=== PATIENT | female | born 1990 | race Caucasian/White ===

== ENCOUNTER 2016-06-24 13:28 | Emergency (ER) | payer OTHER ==
[~2016-06-24] VITALS: Ht 144.8 cm; Wt 45.0 kg
[2016-06-24 13:30] VITALS: BP 114/63; PULSE 74; RESP 20; TEMP 97.8; O2SAT 95
[2016-06-24] MEDS ORDERED: METH10SO PO (14:25)
--- NOTE | 2016-06-24 14:41 | PD ---
HPI Chief Complaint: GI Complaint Time Seen by Provider: 14:41 Travel History International Travel<30 days: No Contact w/Intl Traveler<30days: No Traveled to known affect area: No History of Present Illness HPI 25 year-old female presents to the emergency department for medical clearance. Patient was seen and evaluated the methadone clinic. She is trying to get off of IV heroin. While she was there, she states the care provider told her she had a "very enlarged liver" and advised she come to the emergency department for further evaluation. Patient states that she has been exposed to hepatitis C in the past but has never been treated for it. She also has been told that she has had HPV and would like to know if she has a type the causes cervical cancer. Patient denies any abdominal pain. No vaginal discharge or bleeding. No nausea or vomiting. Patient states that in the past she had had some abdominal pain but she has not been having any abdominal pain recently. She has no other symptoms reported this time. PFSH Past Medical History Medical History: Denies Significant Hx Diminished Hearing: No Genitourinary: Yes (UTI) Hepatitis: Yes (HEP C ) Reproductive: Yes (HPD) Tetanus Vaccination: > 5 Years Influenza Vaccination: No ?: Not LMP: few months Past Surgical History Surgical History: No Previous Surgery Social History Alcohol Use: Yes (OCC) Tobacco Use: Yes (OCC) Substance Use: Yes (opiadates states quit since couple weeks) Allergies-Medications (Allergen,Severity, Reaction): Coded Allergies: No Known Allergies (Unverified , 06/24/16) Reported Meds & Prescriptions Reported Meds & Active Scripts Active Reported Methadone Liq (Methadone HCl) 2 Mg/Ml Liqd 85 Mg PO DAILY Review of Systems Except as stated in HPI: all other systems reviewed are Neg Physical Exam Narrative GENERAL: Well-nourished female patient, in no acute distress SKIN: Focused skin assessment warm/dry. HEAD: Atraumatic. Normocephalic. EYES: Pupils equal and round. No scleral icterus. No injection or drainage. ENT: No nasal bleeding or discharge. Mucous membranes pink and moist. NECK: Trachea midline. No JVD. CARDIOVASCULAR: Regular rate and rhythm. No murmur appreciated. RESPIRATORY: No accessory muscle use. Clear to auscultation. Breath sounds equal bilaterally. GASTROINTESTINAL: Abdomen soft, non-tender, nondistended. Hepatic margins are palpable. No tenderness elicited palpation of the abdomen. No rebound tenderness. No guarding. MUSCULOSKELETAL: No obvious deformities. No clubbing. No cyanosis. No edema. NEUROLOGICAL: Awake and alert. No obvious cranial nerve deficits. Motor grossly within normal limits. Normal speech. Data Data Last Documented VS Vital Signs Date Time Temp Pulse Resp B/P Pulse Ox O2 Delivery O2 Flow Rate FiO2 06/24/16 16:30 98.1 78 17 110/77 99 06/24/16 14:45 Room Air Orders Complete Blood Count With Diff (06/24/16 14:35) Comprehensive Metabolic Panel (06/24/16 14:35) Lipase (06/24/16 14:35) Prothrombin Time / Inr (Pt) (06/24/16 14:35) Act Partial Throm Time (Ptt) (06/24/16 14:35) Urinalysis - C+S If Indicated (06/24/16 14:35) Iv Access Insert/Monitor (06/24/16 14:35) Ecg Monitoring (06/24/16 14:35) Oximetry (06/24/16 14:35) Sodium Chloride 0.9% Flush (Ns Flush) (06/24/16 14:45) Ed Urine Pregnancytest Poc (06/24/16 14:35) Sodium Chlor 0.9% 1000 Ml Inj (Ns 1000 M (06/24/16 14:45) Labs Laboratory Tests Test 06/24/16 15:00 White Blood Count 10.3 TH/MM3 Red Blood Count 4.89 MIL/MM3 Hemoglobin 13.6 GM/DL Hematocrit 40.9 % Mean Corpuscular Volume 83.8 FL Mean Corpuscular Hemoglobin 27.9 PG Mean Corpuscular Hemoglobin 33.3 % Concent Red Cell Distribution Width 14.6 % Platelet Count 281 TH/MM3 Mean Platelet Volume 9.0 FL Neutrophils (%) (Auto) 44.3 % Lymphocytes (%) (Auto) 46.2 % Monocytes (%) (Auto) 5.7 % Eosinophils (%) (Auto) 3.3 % Basophils (%) (Auto) 0.5 % Neutrophils # (Auto) 4.5 TH/MM3 Lymphocytes # (Auto) 4.7 TH/MM3 Monocytes # (Auto) 0.6 TH/MM3 Eosinophils # (Auto) 0.3 TH/MM3 Basophils # (Auto) 0.1 TH/MM3 CBC Comment DIFF FINAL Differential Comment Prothrombin Time 10.9 SEC Prothromb Time International 1.0 RATIO Ratio Activated Partial 28.9 SEC Thromboplast Time Urine Color YELLOW Urine Turbidity CLEAR Urine pH 5.5 Urine Specific [place] 1.019 Urine Protein NEG mg/dL Urine Glucose (UA) NEG mg/dL Urine Ketones NEG mg/dL Urine Occult Blood NEG Urine Nitrite NEG Urine Bilirubin NEG Urine Urobilinogen LESS THAN 2.0 MG/DL Urine Leukocyte Esterase TRACE Urine RBC 1 /hpf Urine WBC 2 /hpf Urine Squamous Epithelial 2 /hpf Cells Urine Hyaline Casts 1 /lpf Urine Mucus FEW /lpf Microscopic Urinalysis Comment CULT NOT INDICATED Sodium Level 136 MEQ/L Potassium Level 6.1 MEQ/L Chloride Level 102 MEQ/L Carbon Dioxide Level 30.6 MEQ/L Anion Gap 3 MEQ/L Blood Urea Nitrogen 13 MG/DL Creatinine 0.73 MG/DL Estimat Glomerular Filtration 98 ML/MIN Rate Random Glucose 78 MG/DL Calcium Level 9.1 MG/DL Total Bilirubin 0.3 MG/DL Aspartate Amino Transf 54 U/L (AST/SGOT) Alanine Aminotransferase 34 U/L (ALT/SGPT) Alkaline Phosphatase 69 U/L Total Protein 8.3 GM/DL Albumin 3.2 GM/DL Lipase 195 U/L [facility] Medical Decision Making Medical Screen Exam Complete: Yes Emergency Medical Condition: Yes Medical Record Reviewed: Yes Differential Diagnosis Normal examination versus elevated liver enzymes versus hepatitis versus enlarged liver versus substance abuse Narrative Course 25 year-old female presents to emergency department for evaluation. Patient appears without distress. Abdominal exam is benign. CBC and CMP are without acute concern. Potassium is 6.1 however there is hemolysis noted. AST slightly elevated at 54. Otherwise without acute concern. I discussed the patient my attending physician Dr. Neal. Patient is medically cleared to return to [facility] to continue on with assistance getting off of opiates. I have encouraged outpatient follow-up in regards to her reporting she has HPV and past exposure of a hepatitis C. She agrees to return immediately with any acute worsening symptoms. Diagnosis Primary Impression: Hyperkalemia Additional Impressions: Normal physical exam Opiate dependence Qualified Code: F11.20 - Uncomplicated opioid dependence Referrals: Primary Care Physician Patient Instructions: General Instructions, Hyperkalemia (ED) Additional Instructions: Follow-up with a primary care provider Return immediately with any acute worsening of symptoms Med/Other Pt SpecificInfo: No Change to Meds Disposition: 01 DISCHARGE HOME Condition: Stable Ronda Pratt Jun 24, 2016 14:41
[2016-06-24 14:45] VITALS: PULSE 76; RESP 17; O2SAT 99
[2016-06-24] MEDS ORDERED: SODIUM CHLOR 0.9% 1000 ML INJ 1,000 ML IV ONE (14:45)
[2016-06-24] MEDS ORDERED: SODIUM CHLORIDE 0.9% FLUSH 10 ML FLUSH IV FLUSH PRN (14:45)
[2016-06-24 15:35] LABS: AUTOMATED NEUTROPHIL # 4.5 TH/MM3 (1.8-7.7); BASOPHIL # 0.1 TH/MM3 (0-0.2); BASOPHIL % 0.5 % (0.0-2.0); EOSINOPHIL # 0.3 TH/MM3 (0-0.4); EOSINOPHIL % 3.3 % (0.0-4.0); HEMATOCRIT 40.9 % (35.0-46.0); HEMO FLAGS DIFF FINAL; LYMPH % 46.2 % (9.0-44.0); LYMPHOCYTE # 4.7 TH/MM3 (1.0-4.8); MEAN CELL VOLUME 83.8 FL (80.0-100.0); MEAN CORPUSCULAR HEMOGLOBIN 27.9 PG (27.0-34.0); MEAN CORPUSCULAR HGB CONC 33.3 % (32.0-36.0); MONO % 5.7 % (0.0-8.0); NEUT % 44.3 % (16.0-70.0); PLATELET COUNT 281 TH/MM3 (150-450); RED BLOOD COUNT 4.89 MIL/MM3 (4.00-5.30); RED CELL DISTRIBUTION WIDTH 14.6 % (11.6-17.2); WHITE BLOOD COUNT 10.3 TH/MM3 (4.0-11.0)
[2016-06-24 15:42] LABS: BLOOD, URINE NEG (NEG); COMMENT (UR) CULT NOT INDICATED; CULTURE IF INDICATED CULT NOT INDICATED; GLUCOSE,URINE NEG (NEG); HYALINE CAST, URINE 1 /lpf (RARE); KETONE, URINE NEG (NEG); MUCUS URINE FEW /lpf (OCC); NITRITE,URINE NEG (NEG); PH, URINE 5.5 (5.0-8.5); SQUAMOUS EPITHELIAL CELL URINE 2 /hpf (0-5); URINE COLOR YELLOW (YELLW/STRAW)
[2016-06-24 15:58] LABS: APTT (PATIENT) 28.9 SEC (24.3-30.1); PROTHROMBIN TIME - PATIENT 10.9 SEC (9.8-11.6)
[2016-06-24 16:23] LABS: ALKALINE PHOSPHATASE 69 U/L (45-117); ALT (GPT) 34 U/L (10-53); ANION GAP 3 MEQ/L (5-15); AST (GOT) 54 U/L (15-37); BICARBONATE 30.6 MEQ/L (21.0-32.0); BLOOD UREA NITROGEN 13 MG/DL (7-18); CHLORIDE 102 MEQ/L (98-107); GLOMERULAR FILTRATION RATE 98 ML/MIN (>89); POTASSIUM 6.1 MEQ/L (3.5-5.1); SODIUM (NA) 136 MEQ/L (136-145); TOTAL BILIRUBIN ADULT 0.3 MG/DL (0.2-1.0)
[2016-06-24 16:30] VITALS: BP 110/77; TEMP 98.1
== END 2016-06-24 16:30 | disposition home or self-care (01) ==
LOC: NEPE 13:28
DX: E87.5 Hyperkalemia (principal); F11.20 Opioid dependence, uncomplicated; R10.9 Unspecified abdominal pain
CPT/HCPCS: 80053; 81001; 83690; 84703; 85025; 85610; 85730; 96360; 99283; J7030